=== PATIENT | male | born 1980 | race Caucasian/White ===

== ENCOUNTER 2019-01-24 21:57 | Emergency (ER) | payer SELFPAY ==
[~2019-01-24] VITALS: Ht 172.7 cm; Wt 108.4 kg
== END 2019-01-25 00:15 | disposition home or self-care (01) ==
LOC: ED 21:57
PROC: 0HQ1XZZ Repair Face Skin, External Approach (ICD-10-PCS; principal; 2019-01-24)
DX: S01.111A Laceration without foreign body of right eyelid and periocular area, initial encounter (principal); S20.222A Contusion of left back wall of thorax, initial encounter; S50.311A Abrasion of right elbow, initial encounter; S80.211A Abrasion, right knee, initial encounter; I10 Essential (primary) hypertension; Z88.1 Allergy status to other antibiotic agents; Z23 Encounter for immunization; Y04.0XXA Assault by unarmed brawl or fight, initial encounter
CPT/HCPCS: 12013; 72070; 90471; 90715; 99284-25

== ENCOUNTER 2019-04-02 08:10 | Emergency (ER) | payer BC ==
[~2019-04-02] VITALS: Ht 172.7 cm; Wt 108.4 kg
[2019-04-02] MEDS ORDERED: CLEOCIN HCL300 MG PO (08:57)
== END 2019-04-02 09:23 | disposition home or self-care (01) ==
LOC: ED 08:10
DX: L02.212 Cutaneous abscess of back [any part, except buttock and flank] (principal); I10 Essential (primary) hypertension; F17.200 Nicotine dependence, unspecified, uncomplicated
CPT/HCPCS: 99282

== ENCOUNTER 2021-06-01 10:33 | Emergency (ER) | payer BC ==
[~2021-06-01] VITALS: Ht 172.7 cm; Wt 108.4 kg
[~2021-06-01 10:33] MED LIST: CLEOCIN HCL300 MG PO
[2021-06-01] MEDS ORDERED: LISINOPRIL5 MG PO (10:46)
[2021-06-01] MEDS ORDERED: BUDESONIDE-FO10.2 G1 INH (10:47)
[2021-06-01] MEDS ORDERED: PROAIR HFA8.5 GM INH (10:47)
[2021-06-01] MEDS ORDERED: FLUTICASONE PRO16 GM NAS (10:47)
[2021-06-01] MEDS ORDERED: MONTELUKAST SOD10 MG PO (10:48)
== END 2021-06-01 12:46 | disposition home or self-care (01) ==
LOC: ED 10:33
DX: G43.909 Migraine, unspecified, not intractable, without status migrainosus (principal); I10 Essential (primary) hypertension; F17.200 Nicotine dependence, unspecified, uncomplicated; Z88.1 Allergy status to other antibiotic agents; Z79.899 Other long term (current) drug therapy
CPT/HCPCS: 70450; 80053; 85025; 99284-25

== ENCOUNTER 2023-09-10 03:20 | Emergency (ER) | payer BC ==
[~2023-09-10] VITALS: Ht 172.7 cm; Wt 103.9 kg
[~2023-09-10 03:20] MED LIST changes: +BUDESONIDE-FO10.2 G1 INH; +FLUTICASONE PRO16 GM NAS; +LISINOPRIL5 MG PO; +MONTELUKAST SOD10 MG PO; +PROAIR HFA8.5 GM INH
[2023-09-10 04:15] LABS: RDW 13.2 (10.5-15.0)
[2023-09-10 04:17] LABS: BASOPHILS 0.7 % (0-2); HEMATOCRIT 44.4 % (35.0-50.0); MCH 28.3 (27-36); MCHC 33.7 g/dl (30-36); MONOCYTES 7.3 % (0-12); PLATELET COUNT 294 K/uL (140-440); RBC 5.28 M/ul (4.3-5.7)
[2023-09-10 04:26] LABS: INR 0.98 (0.80-1.30); PROTIME 12.6 Sec (11.2-14.2)
[2023-09-10 04:36] LABS: ALBUMIN 3.7 g/dL (3.4-5.0); ALBUMIN/GLOBULIN RATIO 0.95 (1.1-2.4); BILIRUBIN, TOTAL 0.4 ng/dL (0.2-1.0); BUN/CREATININE RATIO 16.84 (6.0-28.6); CALCIUM 9.2 mg/dL (8.5-10.1); CREATININE, SERUM 0.95 mg/dL (0.70-1.30); PROTEIN, TOTAL 7.6 g/dL (6.4-8.2)
[2023-09-10] MEDS ORDERED: OMEPRAZOLE20 MG PO (05:06)
[2023-09-10] MEDS ORDERED: SUCRALFATE1 GM PO (05:06)
[2023-09-10 05:17] VITALS: BP 126/89
== END 2023-09-10 05:16 | disposition home or self-care (01) ==
LOC: ED 03:20
PROVIDERS: Family Medicine
DX: K92.2 Gastrointestinal hemorrhage, unspecified (principal); I10 Essential (primary) hypertension; F17.200 Nicotine dependence, unspecified, uncomplicated; Z88.1 Allergy status to other antibiotic agents; Z79.899 Other long term (current) drug therapy; Z79.51 Long term (current) use of inhaled steroids
CPT/HCPCS: 36415; 80053; 85025; 85610; 96374; 99284-25; J1790

== ENCOUNTER 2024-02-27 18:59 | Emergency (ER) | payer BC, OTHER ==
[~2024-02-27] VITALS: Ht 172.7 cm; Wt 102.1 kg
[~2024-02-27 18:59] MED LIST changes: +AMOX TR-K CLV1 EAC1 PO; +OMEPRAZOLE20 MG PO; +SUCRALFATE1 GM PO
[2024-02-27] MEDS ORDERED: SODIUM CHLORIDE 0.9% 1,000 ML IV ONE (19:30)
[2024-02-27 19:56] LABS: BILIRUBIN, URINE NEGATIVE (negative); BLOOD/HGB, URINE LARGE (Negative); KETONE, URINE NEGATIVE (Negative); LEUK ESTERASE, URINE NEGATIVE (negative); NITRITE, URINE NEGATIVE (negative)
[2024-02-27 19:58] LABS: BASOPHILS 0.8 % (0-2); EOSINOPHILS 3.9 % (0-6); HEMATOCRIT 41.2 % (35.0-50.0); HEMOGLOBIN 13.7 g/dL (12.0-18.0); LYMPHOCYTES 30.4 % (24-44); MCH 27.4 (27-36); MCHC 33.4 g/dl (30-36); MCV 82.2 fl (81-99); MONOCYTES 8.9 % (0-12); PLATELET COUNT 309 K/uL (140-440); RBC 5.01 M/ul (4.3-5.7); RDW 13.4 (10.5-15.0)
[2024-02-27 20:05] LABS: RED BLOOD CELLS, URINE 21-40 /hpf (0-5)
[2024-02-27 20:06] LABS: ALBUMIN 3.8 g/dL (3.4-5.0); ALBUMIN/GLOBULIN RATIO 1.09 (1.1-2.4); ANION GAP 15.8 (7-21); BILIRUBIN, TOTAL 0.3 ng/dL (0.2-1.0); BUN/CREATININE RATIO 12.94 (6.0-28.6); CALCIUM 8.9 mg/dL (8.5-10.1); CREATININE, SERUM 0.85 mg/dL (0.70-1.30); POTASSIUM 3.8 mmol/L (3.5-5.1); PROTEIN, TOTAL 7.3 g/dL (6.4-8.2)
[2024-02-27 20:06] LABS: BACTERIA, URINE RARE /hpf (negative); CASTS, URINE NONE SEEN \\lpf; COLLECTION TYPE, URINE CLEAN CATCH; CRYSTALS, URINE NONE SEEN (0-1+); EPITHELIAL CELLS, URINE NS /lpf (0-1+); REFLEX CULTURE, URINE No (No)
[2024-02-27] MEDS ORDERED: CEFDINIR300 MG PO (21:02)
[2024-02-27] MEDS ORDERED: CEFDINIR 300 MG HOME.PACK PO ONE (21:15)
[2024-02-27 21:19] VITALS: BP 142/92
== END 2024-02-27 21:22 | disposition home or self-care (01) ==
LOC: ED 18:59
PROVIDERS: Family Medicine
DX: N39.0 Urinary tract infection, site not specified (principal); I10 Essential (primary) hypertension; F17.290 Nicotine dependence, other tobacco product, uncomplicated; Z88.1 Allergy status to other antibiotic agents; Z88.8 Allergy status to other drugs, medicaments and biological substances; Z79.899 Other long term (current) drug therapy
CPT/HCPCS: 36415; 74177; 80053; 81001; 83690; 85025; 99284-25; J7030; Q9967

== ENCOUNTER 2024-11-29 10:45 | Day surgery (SDC) | payer BC ==
[2024-11-23 13:26] VITALS: BP 135/86
[~2024-11-29] VITALS: Ht 180.3 cm; Wt 106.8 kg
[~2024-11-29 10:45] MED LIST changes: +CEFDINIR300 MG PO; +IBLOOD GLUCOSE TEST STRIP 1 EA TEST VI PRN; +LACTATED RINGER'S 1,000 ML IV SCH; +LIDOCAINE HCL 1% 5 ML SDV INJ ONE; +LIDOCAINE HCL 2% 5 ML SDV ONE; +propofoL 200 MG/20 ML VIAL ONE
[2024-11-29 11:00] VITALS: BP 134/80
--- NOTE | 2024-11-29 12:38 | NUR ---
11/29/24 1238 Evelin Steinberg 1234-PATIENT ARRIVED TO PACU ON 2L NC RR EVEN. PATIENT NOANROUSABLE LAYING LEFT LATERAL ABDOMEN SOFT. IVF INFUSING. SR HR 70'S. 1238-PATIENT MOVING LOWER LEGS NONAROUSABLE. 2L NC RR EVEN 99% PASSING GAS
[2024-11-29 13:00] VITALS: BP 127/79
--- NOTE | 2024-11-30 07:26 | OR ---
[facility] [address] [place], [place] [address] Signed DATE OF OPERATION: 11/29/2024 SURGEON: Al Tao MD PREOPERATIVE DIAGNOSES: 1. Change in bowel habits with ribbonlike stool. 2. Intermittent constipation. 3. Chronic diarrhea. 4. Possible episode of melena. 5. Hemorrhoids. 6. Diverticulosis. 7. 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 POSTOPERATIVE DIAGNOSES: 1. A 7 mm sessile polyp at base of cecum (snare, lost). 2. Nqfmcox-hf-aaphrmem internal and external hemorrhoids. 3. Random cold biopsies x2 in left colon. PROCEDURE: Colonoscopy with snare polypectomy and cold biopsies. ESTIMATED BLOOD LOSS: None. INDICATIONS: Zachariah is a 44-year-old gentleman asked to see me for a colonoscopy. He was in [place], [place] in October of last year for upper endoscopy. Apparently, he had mild esophagitis. He and his were unable to give me much detail in that regard. He says currently he has had a change in bowel habits with ribbonlike stool. There is mention of some constipation intermittently in the chart. He said mostly he has chronic diarrhea. He thinks he has hemorrhoids. He thinks maybe he has diverticulosis. There is a question whether or not he may have had an episode of melena. He is describing incision and drainage of a perianal abscess at least twice. He could have a chronic anal fistula. He had a CT scan of his abdomen and pelvis in February [address] [facility], this was negative. There is no family history of colon cancer, polyps or inflammatory bowel disease. In the office, I gave him a brochure on colonoscopy. We had reviewed the nature of the test. There is risk including, but not limited to gas bloating, crampy abdominal pain, bleeding, perforation requiring surgery, and missed diagnosis. We also reviewed the written instructions for the bowel prep line by line. Electronically Signed By: AL TAO MD 11/30/24 0726 PATIENT NAME: ZACHARIAH VALENZUELA OPERATIVE REPORT DATE OF : 84 REPORT #: [id number] PHYSICIAN: AL TAO MD PCP: ELIDIA CASAS PAC REPORT IS CONFIDENTIAL AND NOT TO BE RELEASED WITHOUT AUTHORIZATION [address] [address] Signed He did very well with a bowel prep, except that he did vomit some. He seems to be sensitive to the polyethylene glycol. He probably needs to slow down and take the prep over several hours rather than 2 hours. In addition, he requires monitored anesthesia care mainly for his cannabis use, but he also has a very full round face with a heavy full face martin. He understands an adult person has to take home afterwards. He had expressed understanding and wished to proceed. DESCRIPTION OF PROCEDURE: Zachariah was taken into our endoscopy suite and placed in the left lateral decubitus position. He was given monitored anesthesia care, propofol infusion per our nurse carpenter packing. A digital rectal exam was performed. He does have moderate external hemorrhoids. I looked carefully, and I really could not find a perianal surgical scar. His sphincter muscles are completely intact circumferentially. There were no masses. The adult colonoscope was introduced and advanced under direct visualization without difficulty. His prep was actually pretty good. He had some areas of bilious liquid stool with bubbles that we could quite see through completely. We did find the appendiceal orifice. Next to it was a 5-7 mm sessile polyp, it was easily divided with the snare and we suctioned into the scope. We think we found a couple of small pieces of it in our trap. Hemostasis was excellent. The scope was then slowly withdrawn. We could also see the ileocecal valve. We did not see any diverticula. The rectum was unremarkable. We took a couple of biopsies out of the left colon because of the history of diarrhea. The scope was then retroflexed and he does have iumdjne-gn-wzruzxfn internal hemorrhoids as well. After this, the gas was suctioned out, colonoscope removed. Overall, Zachariah tolerated the procedure well. RECOMMENDATIONS: I will see Zachariah in my office in 7 to 14 days to review his results. He might consider repeating the colonoscopy on a shorter interval, say 1-3 years with a bowel prep consumed over a longer length of time since he seems to be sensitive to polyethylene glycol. He should always use monitored anesthesia care in the future. MD TYLER Gutierrez/ONIL /[id number] Electronically Signed By: AL TAO MD 11/30/24 0726 PATIENT NAME: ZACHARIAH VALENZUELA OPERATIVE REPORT DATE OF : 84 REPORT #: [id number] PHYSICIAN: AL TAO MD PCP: ELIDIA CASAS PAC REPORT IS CONFIDENTIAL AND NOT TO BE RELEASED WITHOUT AUTHORIZATION [facility] [address] [place], [place] [address] Signed cc: [facility] Al Tao MD Patient Chart Copies: [facility] AL TAO MD ~ Electronically Signed By: AL TAO MD 11/30/24 0726 PATIENT NAME: NICOLASZACHARIAH VIDAL OPERATIVE REPORT DATE OF : 84 REPORT #: [id number] PHYSICIAN: AL TAO MD PCP: ELIDIA CASAS PAC REPORT IS CONFIDENTIAL AND NOT TO BE RELEASED WITHOUT AUTHORIZATION
--- NOTE | 2024-12-01 15:10 | PATH ---
[facility] [address] [place], [place] [address] Signed SPECIMEN(S): A CECUM COLON POLYP SPECIMEN(S): B RANDOM DESCENDING COLON POLYP SPECIMEN SOURCE: A. CECUM COLON POLYP B. RANDOM DESCENDING COLON POLYP CLINICAL HISTORY: Constipation; diarrhea; change in bowel habits; diverticulosis; hemorrhoids. FINAL PATHOLOGIC DIAGNOSIS: A. Cecum polyp: - Tubular adenoma, negative for high grade dysplasia. B. Random descending colon polyp: - Hyperplastic polyp, negative for dysplasia. NA MICROSCOPIC EXAMINATION: Histologic sections of all submitted blocks are examined by light microscopy. These findings, together with the gross examination, support the pathologic diagnosis. GROSS DESCRIPTION: A. The specimen, labeled and designated "Valenzuela, cecum polyp," is received in formalin and consists of four pacheco soft tissue fragments, ranging from 0.1 cm. Entirely submitted in (A1). B. The specimen, labeled and designated "Valenzuela, random descending colon polyp," is received in formalin and consists of two pacheco soft tissue fragments, ranging from 0.2 cm. Entirely submitted in (B1). JS (under the direct supervision of a pathologist) The Gross Description was prepared using a voice recognition system. The report was reviewed for accuracy; however, sound-alike word errors, addition and/or deletions may occur. If there is any question about this report, please contact Client Services. ADDITIONAL NOTES: Immunohistochemical and/or in situ hybridization studies if performed in this case included appropriate positive controls that reacted as expected. This test was developed and its performance characteristics determined by [facility]. It has not been cleared or PATIENT NAME: ZACHARIAH VALENZUELA PATHOLOGY DATE OF : 84 REPORT #: [id number] PHYSICIAN: NORMA FRIAS PCP: ELIDIA CASAS PAC REPORT IS CONFIDENTIAL AND NOT TO BE RELEASED WITHOUT AUTHORIZATION [facility] [address] [place], [place] [address], [place] [address] Signed approved by the U.S. Food and Drug Administration. The FDA has determined that such clearance or approval is not necessary. This test is used for clinical purposes. It should not be regarded as investigational or for research. [facility] is certified under the Clinical Laboratory Improvement Amendments of 1988 (CLIA) as qualified to perform high complexity clinical laboratory testing. PERFORMING LABORATORY: Technical component was performed by [facility], [address] [place] [address] (CLIA# [id number]). Professional interpretation was performed by [facility], [address] [place] [address] (CLIA#: [id number]). Diagnostician: Kingsley Bullock MD Pathologist Electronically Signed 12/01/2024 Copies: ~ PATIENT NAME: ZACHARIAH VALENZUELA PATHOLOGY DATE OF : 84 REPORT #: [id number] PHYSICIAN: [facility] PATHOLOGY PCP: ELIDIA CASAS PAC REPORT IS CONFIDENTIAL AND NOT TO BE RELEASED WITHOUT AUTHORIZATION
== END 2024-11-29 13:10 | disposition home or self-care (01) ==
LOC: DS 10:45
PROVIDERS: ATTEND Colon & Rectal Surgery
PROC: 0DBH8ZZ Excision of Cecum, Via Natural or Artificial Opening Endoscopic (ICD-10-PCS; 2024-11-29)
PROC: 0DBG8ZX Excision of Left Large Intestine, Via Natural or Artificial Opening Endoscopic, Diagnostic (ICD-10-PCS; principal; 2024-11-29 11:50)
DX: R19.4 Change in bowel habit (principal); D12.0 Benign neoplasm of cecum; K63.5 Polyp of colon; K64.8 Other hemorrhoids; K64.4 Residual hemorrhoidal skin tags; I10 Essential (primary) hypertension; K21.9 Gastro-esophageal reflux disease without esophagitis; E78.00 Pure hypercholesterolemia, unspecified; J45.30 Mild persistent asthma, uncomplicated; Z79.899 Other long term (current) drug therapy; Z88.2 Allergy status to sulfonamides; Z88.1 Allergy status to other antibiotic agents
CPT/HCPCS: 00811; J2003; J2704; J7121

== ENCOUNTER 2024-12-10 15:50 | Emergency (ER) | payer BC ==
[~2024-12-10] VITALS: Ht 180.3 cm; Wt 109.0 kg
[~2024-12-10 15:50] MED LIST changes: -IBLOOD GLUCOSE TEST STRIP 1 EA TEST VI PRN; -LACTATED RINGER'S 1,000 ML IV SCH; -LIDOCAINE HCL 1% 5 ML SDV INJ ONE; -LIDOCAINE HCL 2% 5 ML SDV ONE; -propofoL 200 MG/20 ML VIAL ONE
[2024-12-10 16:28] LABS: BILIRUBIN, URINE NEGATIVE (negative); BLOOD/HGB, URINE LARGE (Negative); KETONE, URINE NEGATIVE (Negative); LEUK ESTERASE, URINE NEGATIVE (negative); NITRITE, URINE NEGATIVE (negative)
[2024-12-10 16:33] LABS: EPITHELIAL CELLS, URINE SQUAMOUS 1+ /lpf (0-1+); RED BLOOD CELLS, URINE >50 /hpf (0-5)
[2024-12-10 16:34] LABS: BACTERIA, URINE 1+ /hpf (negative); CASTS, URINE NONE SEEN \\lpf; COLLECTION TYPE, URINE CLEAN CATCH; CRYSTALS, URINE NONE SEEN (0-1+); REFLEX CULTURE, URINE No (No)
[2024-12-10] MEDS ORDERED: CEPHALEXIN500 M1 PO (17:22)
[2024-12-10 17:26] VITALS: BP 122/70
[2024-12-10] MEDS ORDERED: CEPHALEXIN MONOHYDRATE 500 MG CAP PO ONE (17:30)
== END 2024-12-10 17:28 | disposition home or self-care (01) ==
LOC: ED 15:50
PROVIDERS: Emergency Medicine
DX: R31.9 Hematuria, unspecified (principal); I10 Essential (primary) hypertension; F17.200 Nicotine dependence, unspecified, uncomplicated; Z79.51 Long term (current) use of inhaled steroids; Z79.899 Other long term (current) drug therapy; Z88.1 Allergy status to other antibiotic agents
CPT/HCPCS: 81001; 99283; A9270